=== PATIENT | female | born 1990 | race Caucasian/White ===

== ENCOUNTER 2024-10-16 14:21 | Emergency (ER) | payer MEDICAID ==
[~2024-10-16] VITALS: Ht 170.2 cm; Wt 75.0 kg
[2024-10-16 14:23] VITALS: TEMP 36.7; O2SAT 98
[2024-10-16] MEDS: FAMOTIDINE 20MG/2ML VIAL IV ONE (15:00)
[2024-10-16] MEDS: METHYLPREDNISOLONE SOD SUCC 125MG/2ML (ACT-O-VIAL) IV ONE (15:00)
[2024-10-16] MEDS ORDERED: EPIN0.3P3 IM (19:42)
[2024-10-16 19:45] VITALS: BP 126/58; PULSE 94; RESP 16; O2SAT 95
== END 2024-10-16 19:54 | disposition home or self-care (01) ==
LOC: ER 14:21
DX: T78.2XXA Anaphylactic shock, unspecified, initial encounter (principal); F10.90 Alcohol use, unspecified, uncomplicated; L50.9 Urticaria, unspecified; Y92.89 Other specified places as the place of occurrence of the external cause; Y90.9 Presence of alcohol in blood, level not specified
CPT/HCPCS: 99291; 96374; 96375; J2919; J3490